=== PATIENT | male | born 1970 | race Caucasian/White ===

== ENCOUNTER 2023-07-30 08:49 | Outpatient (AMB) | payer OTHER, SELFPAY ==
--- NOTE | 2023-07-30 08:58 | A.OFFVIS_ITS ---
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 States he is having pain in his DIP joint. He recalls on , he was climbing his work truck and fell forward, put his hand out to break his fall and his his finger on a rail. He didn't feel pain until the next day. Currently he is not able to straighten out his finger due to pain and mild swelling. Denies numbness or tingling. Hx of R.A. Allergies sulfamethoxazole [From Bactrim] Allergy (Unknown, Verified 07/30/23 09:03) Unknown trimethoprim [From Bactrim] Allergy (Unknown, Verified 07/30/23 09:03) Unknown HPI OFFICE BOOKKEEPER-RT MF joint detachment?- HPI Details Simeon is a 53 year old right hand dominant man who presents for a right middle finger work injury, DOI: 04/14/23. He works for [employer], and says that while working overnight he tripped climbing into his truck, he says he fell and hit his middle finger off of the railing while trying to break his fall. His middle finger was forced into flexion at the PIP and D IP joints while the other fingers were extended. He denies any treatment at the time. He says he is unable to fully straighten his middle finger, and he wanted to make sure there would be no supervisor phosphoric acid issues. He has been working with PT through his work. 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 He says he also noticed a small mass on the side of his middle finger last night. He denies any pain. he says he has a hx of [facility] Social History (Updated 07/30/23 @ 09:04 by MAGALYS Scherer) Patient Tobacco Use Status: Never used Tobacco Current occupational status: employed Current occupation: rt hand/ [employer] Review of Systems Const All systems reviewed & are unremarkable except as noted in HPI and below Physical Exam Vital Signs: BMI result Body Mass Index 31.9 Const General: cooperative, healthy appearing and no acute distress Orientation/consciousness: patient oriented x3 HEENT Head: Yes normocephalic and Yes atraumatic Eyes EOM: EOMs intact bilaterally Resp Effort & Inspection: normal respiratory effort and able to speak in complete sentences Cardio Jugular venous distension: no JVD Skin General skin exam: turgor normal Rashes: no rashes Neuro General: patient oriented x3 Extrem Other: Evaluation of Right Upper Extremity: The patient is alert, oriented, and in no acute distress Neuro: Median, Ulnar, Radial nerves motor and sensory intact and sensation is normal to the tips of all digits Vascular: Cap refill brisk ROM: He can make a tight fist with good strength and extend all his digits, all without pain. He has an ~5-7 degree extensor lag at the middle finger DIP joint He can hold his middle finger extended against resistance The digit is completely nontender to palpation. Skin: No lacerations or abrasions. General: No Ecchymosis. No Erythema or evidence of infection. He has a fluid-filled mass, ~4mm in diameter, on the ulnar aspect of the middle finger, just proximal to the DIP joint. It is possible that this is a small ganglion off the D IP joint. Radiographs: 3 views of the right hand, with attention to the middle finger, were taken and viewed by me today in clinic. They show no fractures, dislocations, or arthritic changes. Psych Appearance: grossly normal Affect: normal affect Attitude: cooperative Assessment & Plan Assessment & Plan (1) Mass of finger of right hand: Code(s): R22.31 - Localized swelling, mass and lump, right upper limb (2) Mallet deformity of right middle finger: Code(s): M20.011 - Mallet finger of right finger(s) Plan Assessment & Plan: 1. Right middle finger slight mallet deformity Of ~5-7 degrees at the DIP joint This is following a work injury, DOI: 04/14/23 I educated him about this condition I discussed splinting vs non-splinting treatment options He is able to function & perform his duties at work without difficulty or pain. At this time he is not interested in splinting, and I do not recommend any intervention He is able to continue with all normal activities, without restrictions He can follow up prn 2. Right middle finger mass Measuring ~4mm in diameter, ulnar aspect of the middle finger, just proximal to the DIP joint This is likely a cyst, and is fluid-filled He denies any pain It has been present for 1 day. If symptoms persist or worsen he can follow up to discuss treatment options Scribed for Ignacia Albarado MD by Patricio Shipley, medical professionals, on 07/30/23 at 9:25 AM, EST. Orders: Orders XR hand RT min 3V Today M79.641 - Pain in right hand Coding Level of Care Code New Pt Level 3 (55124) Diagnoses Mass of finger of right hand R22.31 Mallet deformity of right middle finger M20.011
[2023-07-30 08:59] VITALS: BMI 31.9
== END 2023-07-30 09:29 | disposition home or self-care (01) ==
LOC: HO.HOS 08:50
PROVIDERS: Visit Provider Orthopaedic Surgery
DX: R22.31 Localized swelling, mass and lump, right upper limb (principal); M20.011 Mallet finger of right finger(s)
CPT/HCPCS: 99203

== ENCOUNTER 2023-07-30 12:04 | Outpatient (REF) | payer OTHER, BC, SELFPAY ==
--- NOTE | ~2023-07-30 | XR_ITS ---
EXAMINATION: XR HAND, RIGHT CLINICAL INFORMATION: Pain. COMPARISON: None available. TECHNIQUE: PA, lateral, and oblique views of the right hand. FINDINGS: Bony alignment and mineralization are normal. There is very mild osteoarthritic change of the interphalangeal joint of the thumb and of the second, third and fifth distal interphalangeal joints. There is very mild osteoarthritic change of the first metacarpophalangeal joint. No fracture or dislocation is seen. There is no abnormal bone erosion. The proximal and distal carpal rows are intact. There is no focal soft tissue swelling, gas or foreign body. 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 No fracture or dislocation is seen. There is no abnormal bone erosion.
== END 2023-07-30 12:05 | disposition home or self-care (01) ==
LOC: HO.HOSX 12:04
PROVIDERS: Visit Provider Orthopaedic Surgery
DX: M79.641 Pain in right hand (principal); R22.31 Localized swelling, mass and lump, right upper limb; M20.011 Mallet finger of right finger(s)
CPT/HCPCS: 73130; 99202